=== PATIENT | female | born 1960 | race Caucasian/White ===

== ENCOUNTER 2023-11-17 06:51 | Day surgery (SDC) | payer MEDICARE, BC ==
[2023-11-17] MEDS ORDERED: BUPIVACAINE 0.5 % PF 150 MG/30 ML VIAL ONE (07:11)
[2023-11-17] MEDS ORDERED: MIDAZOLAM HCL 2 MG/2ML VIAL ONE (09:05)
[2023-11-17] MEDS ORDERED: FENTANYL PF 100MCG/2ML AMPUL ONE (09:05)
[2023-11-17] MEDS ORDERED: MEPERIDINE25 MG SYR 25 MG/ML VIAL ONE (10:11)
== END 2023-11-17 11:24 | disposition home or self-care (01) ==
LOC: DS 06:51
PROVIDERS: ATTEND Specialist
DX: S83.281A Other tear of lateral meniscus, current injury, right knee, initial encounter (principal); S83.241A Other tear of medial meniscus, current injury, right knee, initial encounter; M94.261 Chondromalacia, right knee
CPT/HCPCS: 29880; J0690; J3490 ×2; J1100; J2704; J3010; J2765; J1885; J2405; J7030; J2250; A4217; J2175